=== PATIENT | female | born 1995 | race Two or more races ===

== ENCOUNTER 2018-06-24 15:20 | Emergency (ER) | payer SELFPAY ==
[~2018-06-24] VITALS: Ht 152.4 cm; Wt 70.3 kg
[2018-06-24 17:33] VITALS: BP 127/89
--- NOTE | 2018-06-24 18:15 | PHYS DOC ---
Past Medical History Past Medical History: No Pertinent History Past Surgical History: No Surgical History Alcohol Use: None Drug Use: None Adult General Chief Complaint Chief Complaint: COUGH HPI HPI Patient is a 22 year old [f__sex] who presents with [] Review of Systems Review of Systems Constitutional: Denies fever or chills [] Eyes: Denies change in visual acuity, redness, or eye pain [] HENT: Denies nasal congestion or sore throat [] Respiratory: Denies cough or shortness of breath [] Cardiovascular: No additional information not addressed in HPI [] GI: Denies abdominal pain, nausea, vomiting, bloody stools or diarrhea [] : Denies dysuria or hematuria [] Musculoskeletal: Denies back pain or joint pain [] Integument: Denies rash or skin lesions [] Neurologic: Denies headache, focal weakness or sensory changes [] Endocrine: Denies polyuria or polydipsia [] All other systems were reviewed and found to be within normal limits, except as documented in this note. Allergies Allergies Allergies Coded Allergies Type Severity Reaction Last Updated Verified No Known Drug Allergies 06/24/18 No Physical Exam Physical Exam Constitutional: Well developed, well nourished, no acute distress, non-toxic appearance. [] HENT: Normocephalic, atraumatic, bilateral external ears normal, oropharynx moist, no oral exudates, nose normal. [] Eyes: PERRLA, EOMI, conjunctiva normal, no discharge. [] Neck: Normal range of motion, no tenderness, supple, no stridor. [] Cardiovascular:Heart rate regular rhythm, no murmur [] Lungs & Thorax: Bilateral breath sounds clear to auscultation [] Abdomen: Bowel sounds normal, soft, no tenderness, no masses, no pulsatile masses. [] Skin: Warm, dry, no erythema, no rash. [] Back: No tenderness, no CVA tenderness. [] Extremities: No tenderness, no cyanosis, no clubbing, ROM intact, no edema. [] Neurologic: Alert and oriented X 3, normal motor function, normal sensory function, no focal deficits noted. [] Psychologic: Affect normal, judgement normal, mood normal. [] Current Patient Data Vital Signs Vital Signs Date Time Temp Pulse Resp B/P (MAP) Pulse Ox O2 Delivery O2 Flow Rate FiO2 06/24/18 17:33 97.9 124 22 127/89 (102) 95 Room Air 97.9 EKG EKG [] Radiology/Procedures Radiology/Procedures [] Course & Med Decision Making Course & Med Decision Making Pertinent Labs and Imaging studies reviewed. (See chart for details) [] Dragon Disclaimer Dragon Disclaimer This electronic medical record was generated, in whole or in part, using a voice recognition dictation system. Departure Departure Impression: Primary Impression: Upper respiratory infection Disposition: HOME, SELF-CARE Condition: STABLE Referrals: NO PCP (PCP) Patient Instructions: Upper Respiratory Infection, Adult Additional Instructions: You may use [id number] cough and cold medication for symptom control. Increase fluids and rest. Follow-up with your primary care provider in 3 days if not improving or return to the emergency department if worsening. PEARL WARD APRN Jun 24, 2018 18:15
== END 2018-06-24 18:25 | disposition home or self-care (01) ==
LOC: ER 15:20
DX: J06.9 Acute upper respiratory infection, unspecified (principal)
CPT/HCPCS: 87880; 99284

== ENCOUNTER 2018-11-16 16:57 | Emergency (ER) | payer SELFPAY ==
[~2018-11-16] VITALS: Ht 152.4 cm; Wt 70.3 kg
--- NOTE | 2018-11-16 17:21 | PHYS DOC ---
Past Medical History Past Medical History: No Pertinent History Past Surgical History: No Surgical History Alcohol Use: None Drug Use: None Adult General Chief Complaint Chief Complaint: COUGH HPI HPI Patient is a 23 year old female with history of asthma who presents today complaining of a productive cough with nasal congestion for 2-3 days. Patient denies any fevers. Review of Systems Review of Systems Constitutional: Denies fever or chills [] Eyes: Denies change in visual acuity, redness, or eye pain [] HENT: Denies nasal congestion, denies sore throat [] Respiratory: Reports cough, denies shortness of breath [] Cardiovascular: No additional information not addressed in HPI [] GI: Denies abdominal pain, nausea, vomiting, bloody stools or diarrhea [] : Denies dysuria or hematuria [] Musculoskeletal: Denies back pain or joint pain [] Integument: Denies rash or skin lesions [] Neurologic: Denies headache, focal weakness or sensory changes [] All other systems were reviewed and found to be within normal limits, except as documented in this note. Current Medications Current Medications Current Medications Medications (Trade) Dose Ordered Sig/Luis Start Time Stop Time Status Last Admin Dose Admin Albuterol/ Ipratropium (Duoneb) 3 ml 1X ONCE 11/16/18 17:15 11/16/18 17:18 DC 11/16/18 17:26 3 ML Benzonatate (Tessalon Perle) 100 mg 1X ONCE 11/16/18 17:15 11/16/18 17:18 DC 11/16/18 17:34 100 MG Cetirizine HCl (ZyrTEC) 10 mg 1X STAT 11/16/18 17:15 11/16/18 17:18 DC 11/16/18 17:34 10 MG Prednisone (Prednisone) 50 mg 1X ONCE 11/16/18 17:15 11/16/18 17:18 DC 11/16/18 17:34 50 MG Allergies Allergies Allergies Coded Allergies Type Severity Reaction Last Updated Verified No Known Drug Allergies 06/24/18 No Physical Exam Physical Exam Constitutional: Well developed, well nourished, no acute distress, non-toxic appearance. [] HENT: Normocephalic, atraumatic, bilateral external ears normal, oropharynx moist, no oral exudates, nose normal. [] Eyes: PERRLA, EOMI, conjunctiva normal, no discharge. [] Neck: Normal range of motion, no tenderness, supple, no stridor. [] Cardiovascular:Heart rate regular rhythm, no murmur [] Lungs & Thorax: Bilateral breath sounds clear to auscultation [] Abdomen: Bowel sounds normal, soft, no tenderness, no masses, no pulsatile masses. [] Skin: Warm, dry, no erythema, no rash. [] Back: No tenderness, no CVA tenderness. [] Extremities: No tenderness, no cyanosis, no clubbing, ROM intact, no edema. [] Neurologic: Alert and oriented X 3, normal motor function, normal sensory function, no focal deficits noted. [] Psychologic: Affect normal, judgement normal, mood normal. [] Current Patient Data Vital Signs Vital Signs Date Time Temp Pulse Resp B/P (MAP) Pulse Ox O2 Delivery O2 Flow Rate FiO2 11/16/18 17:27 98 Room Air 11/16/18 16:58 98.4 102 20 135/83 (100) 98.4 EKG EKG [] Radiology/Procedures Radiology/Procedures []PROCEDURE: CHEST PA & LATERAL PA and lateral chest. HISTORY: Cough PA and lateral views were taken of the chest. There is elevation of the left diaphragm. The bowel is distended. Heart is normal in size. There is mild atelectasis in the lung bases. There is no confluent pneumonia. IMPRESSION: 1. Elevated left diaphragm. 2. Bowel distention. 3. Linear atelectasis without other infiltrates. Electronically signed by: Darinel Mccormack MD (11/16/2018 6:10 PM) [facility] DICTATED and SIGNED BY: DARINEL MCCORMACK MD DATE: 11/16/18 180 Course & Med Decision Making Course & Med Decision Making Pertinent Labs and Imaging studies reviewed. (See chart for details) This is a 23-year-old female patient presenting to the ED today with a productive cough and nasal congestion for 2-3 days. Has history of asthma lungs are clear on arrival to the ED the patient is actively coughing. DuoNeb treatment and prednisone were ordered. Coughing has improved. Chest x-ray is negative for any acute findings. Patient states will be discharged with albuterol inhaler, prednisone, and Tessalon Perles. F/u with PCP in one week. Dragon Disclaimer Dragon Disclaimer This electronic medical record was generated, in whole or in part, using a voice recognition dictation system. Departure Departure Impression: Primary Impression: Upper respiratory infection Additional Impressions: Asthma Cough Disposition: 01 HOME, SELF-CARE Condition: STABLE Referrals: NO PCP (PCP) follow up with your doctor in one week Patient Instructions: Asthma, Adult, Cough, Adult, [id number], Upper Respiratory Infection, Child Additional Instructions: You were seen with symptoms consistent of an upper respiratory infection. You also have slight asthma with a cough. We put you on medications, take them as prescribed. Follow-up with your doctor in 1-2 weeks. Scripts Prednisone (PREDNISONE) 50 Mg Tablet 1 TAB PO DAILY, #5 TAB Prov: [facility] AGUILERA APRN 11/16/18 Benzonatate (TESSALON PERLE) 100 Mg Capsule 1 CAP PO TID, #30 CAP Prov: [facility] AGUILERA APRN 11/16/18 Albuterol Sulfate (VENTOLIN HFA INHALER) 18 Gm Hfa.aer.ad 2 PUFF INH Q4HRS for FOR ASTHMA, #1 INHALER 0 Refills Prov: [facility] AGUIELRA APRN 11/16/18 Problem Qualifiers Primary Impression: Upper respiratory infection URI type: unspecified URI Qualified Codes: J06.9 - Acute upper respiratory infection, unspecified Additional Impressions: Asthma Asthma severity: mild Asthma persistence: intermittent Asthma complication type: unspecified Qualified Codes: J45.20 - Mild intermittent asthma, uncomplicated [facility] AGUILERA APRN Nov 16, 2018 17:21
[2018-11-16] MEDS: IPRATRPIUM/ALBUTEROL 0.5/2.5MG 3 ML NEBU. NEB ONE (17:26)
[2018-11-16] MEDS: predniSONE 10 MG TABLET PO ONE (17:34)
[2018-11-16] MEDS: CETIRIZINE HCL 10 MG TABLET. PO STA (17:34)
[2018-11-16] MEDS: BENZONATATE 100 MG CAPSULE. PO ONE (17:34)
--- NOTE | 2018-11-16 18:14 | RAD ---
PA and lateral chest. HISTORY: Cough PA and lateral views were taken of the chest. There is elevation of the left diaphragm. The bowel is distended. Heart is normal in size. There is mild atelectasis in the lung bases. There is no confluent pneumonia. IMPRESSION: 1. Elevated left diaphragm. 2. Bowel distention. 3. Linear atelectasis without other infiltrates. Electronically signed by: Lauri Bird MD (11/16/2018 6:10 PM) [facility]
[2018-11-16] MEDS ORDERED: VENTOLIN HFA18 GM INH (18:28)
[2018-11-16] MEDS ORDERED: PRED50TA PO (18:28)
[2018-11-16] MEDS ORDERED: BENZ100C PO (18:28)
[2018-11-16 18:35] VITALS: BP 149/86
== END 2018-11-16 18:35 | disposition home or self-care (01) ==
LOC: ER 16:57
DX: J45.20 Mild intermittent asthma, uncomplicated (principal); J98.11 Atelectasis; Q79.1 Other congenital malformations of diaphragm
CPT/HCPCS: 71046; 94640; 99284; J7512; J7620